=== PATIENT | female | born 1970 | race Hispanic/Latino ===

== ENCOUNTER 2022-10-04 14:24 | Outpatient (CLI) | payer OTHER ==
[2022-10-04 16:39] LABS: Hemoglobin 10.2 g/dL (12.0-15.5); Mean Corpuscular HGB CONC 33.2 g/dL (32.0-36.0); Mean Corpuscular Hemoglobin 28.5 pg (27.0-33.0); Mean Corpuscular Volume 85.8 fl (81.6-98.3); Mean Platelet Volume 10.4 fl (7.4-10.4); Platelet Count 355 10x3/uL (150-450); RBC Distribution Width 15.5 % (11.5-14.5); Red Blood Cell (RBC) Count 3.58 10x6/uL (3.90-5.03); White Blood Cell (WBC) Count 6.4 10x3/uL (3.5-10.5)
[2022-10-04 16:53] LABS: BHCG - Serum Negative (NEGATIVE); Pregs Control Background? CLEAR/WHITE (CLR/WHITE); Pregs Control Bar Appear? YES (CONTROL BAR)
[2022-10-04 16:59] LABS: ALT (SGPT) 113 U/L (8-55); AST (SGOT) 80 U/L (5-34); Albumin 4.4 g/dL (3.5-5.0); Alkaline Phosphatase 90 U/L (40-110); Anion Gap 10 mmol/L (10-20); BUN (Urea Nitrogen) 9 mg/dL (9.8-20.1); Bilirubin, Direct 0.1 mg/dL (0.1-0.3); Bilirubin, Total 0.2 mg/dL (0.2-1.2); Calc. Creatinine Clearance 0 mL/min (70-130); Calcium 8.9 mg/dL (7.8-10.44); Carbon Dioxide 26 mmol/L (22-29); Chloride 106 mmol/L (98-107); Estimated GFR 93; Glucose 143 mg/dL (70-105); Potassium 3.9 mmol/L (3.5-5.1); Protein, Total 7.1 g/dL (6.0-8.3); Sodium 138 mmol/L (136-145)
== END 2022-10-04 14:25 | disposition home or self-care (01) ==
LOC: CSHLAB 14:24
PROVIDERS: ATTEND Student in an Organized Health Care Education/Training Program
DX: Z01.818 Encounter for other preprocedural examination (principal); D25.1 Intramural leiomyoma of uterus
CPT/HCPCS: 80048; 80076; 84703; 85027; 86850; 86900; 86901; 93005; 93010

== ENCOUNTER 2022-10-08 11:02 | Day surgery (SDC) | payer OTHER ==
[2022-10-07 10:02] VITALS: BMI 38.0
[~2022-10-08 11:02] MED LIST: Promethazine HCl 25 MG/ML VIAL ONE
[2022-10-08] MEDS ORDERED: CeleCOXIB 100 MG CAP ONE (11:27)
[2022-10-08] MEDS ORDERED: Famotidine/PF 20 mg/2ml Vial ONE (11:28)
[2022-10-08] MEDS ORDERED: Gabapentin 300 MG CAP ONE (11:28)
[2022-10-08] MEDS ORDERED: PROPOFOL 20 ML ONE (11:57)
[2022-10-08] MEDS ORDERED: Bupivacaine PF 0.5% 30 ML VIAL ONE (12:12)
[2022-10-08] MEDS ORDERED: EPINEPHrine 1 MG/ML AMP ONE (12:12)
[2022-10-08] MEDS ORDERED: Fentanyl 250 MCG/5 ML VIAL ONE (12:16)
[2022-10-08] MEDS ORDERED: Fentanyl 100 MCG/2 ML VIAL ONE (12:16)
[2022-10-08] MEDS ORDERED: CEFAZOLIN 2 GM VIAL ONE (12:27)
[2022-10-08] MEDS ORDERED: Scopolamine 1.5 mg/72 hour Patch ONE (12:27)
[2022-10-08] MEDS ORDERED: Midazolam HCl 2 mg/2 ml Vial ONE (12:33)
[2022-10-08] MEDS ORDERED: PHENYLEPHRINE-NS 100 MCG/ML 10 ML SYRINGE ONE (13:05)
[2022-10-08] MEDS ORDERED: Glycopyrrolate 0.2 MG/ML 5 ML SYRINGE ONE (14:20)
[2022-10-08] MEDS ORDERED: Meperidine HCl/PF 25 MG/ML VIAL ONE (15:24)
[2022-10-08] MEDS ORDERED: Promethazine HCl 25 MG/ML VIAL IM PRN (17:58)
[2022-10-08] MEDS ORDERED: Bisacodyl 10 MG SUPP PR PRN (17:58)
[2022-10-08] MEDS ORDERED: HYDROcodone/Acetaminophen 5/325 mg Tablet PO PRN ×2 (17:58)
[2022-10-08] MEDS ORDERED: Acetaminophen 325 MG TAB PO PRN (17:58)
[2022-10-08] MEDS ORDERED: Fentanyl 100 MCG/2 ML VIAL SLOW IVP PRN (17:58)
[2022-10-08] MEDS ORDERED: diphenhydrAMINE 25 MG CAP PO PRN (17:58)
[2022-10-08] MEDS ORDERED: Zolpidem Tartrate 5 MG TAB PO PRN (17:58)
[2022-10-08] MEDS ORDERED: Ondansetron PF 4 MG/2 ML Vial IVP PRN (17:58)
[2022-10-08] MEDS ORDERED: metFORMIN 500 MG TAB PO SCH (20:00)
[2022-10-08] MEDS: Ketorolac Tromethamine 30 MG/ML VIAL IVP SCH (20:19)
[2022-10-08] MEDS: Lactated Ringer's 1,000 ML IV SCH (20:21)
[2022-10-08] MEDS: Simethicone Chewable 80 MG TAB PO PRN (20:29)
[2022-10-09] MEDS: Ketorolac Tromethamine 30 MG/ML VIAL IVP SCH (04:00)
[2022-10-09 04:46] LABS: Hemoglobin 10.7 g/dL (12.0-15.5); Mean Corpuscular HGB CONC 33.2 g/dL (32.0-36.0); Mean Corpuscular Hemoglobin 28.1 pg (27.0-33.0); Mean Corpuscular Volume 84.5 fl (81.6-98.3); Mean Platelet Volume 9.6 fl (7.4-10.4); Platelet Count 455 10x3/uL (150-450); RBC Distribution Width 14.8 % (11.5-14.5); Red Blood Cell (RBC) Count 3.81 10x6/uL (3.90-5.03); White Blood Cell (WBC) Count 12.9 10x3/uL (3.5-10.5)
[2022-10-09 07:45] VITALS: BP 141/65; TEMP 99.7
[2022-10-09] MEDS ORDERED: metFORMIN 500 MG TAB PO SCH (08:00)
[2022-10-09] MEDS: Simethicone Chewable 80 MG TAB PO PRN (08:20)
[2022-10-09] MEDS ORDERED: Amlodipine 5 MG TAB PO SCH (09:00)
[2022-10-09] MEDS: Lactated Ringer's 1,000 ML IV SCH (09:40)
[2022-10-14] MEDS ORDERED: Ibuprofen 800 MG TAB PO SCH (06:00)
== END 2022-10-09 11:15 | disposition home or self-care (01) ==
LOC: CSHSDC 11:02 → UNDOADMIN 19:31 → CSHPED 19:31 → UNDODISIN 10-09 11:15 → CSHSDC 10-09 11:15
PROVIDERS: ATTEND Student in an Organized Health Care Education/Training Program
PROC: 0UT74ZZ Resection of Bilateral Fallopian Tubes, Percutaneous Endoscopic Approach (ICD-10-PCS; principal; 2022-10-08)
PROC: 0UT94ZZ Resection of Uterus, Percutaneous Endoscopic Approach (ICD-10-PCS; principal; 2022-10-08)
DX: D25.9 Leiomyoma of uterus, unspecified (principal); N92.0 Excessive and frequent menstruation with regular cycle; N72 Inflammatory disease of cervix uteri; N80.03 Adenomyosis of the uterus; N83.8 Other noninflammatory disorders of ovary, fallopian tube and broad ligament; K66.0 Peritoneal adhesions (postprocedural) (postinfection); I10 Essential (primary) hypertension; E11.9 Type 2 diabetes mellitus without complications; Z79.899 Other long term (current) drug therapy; Z88.5 Allergy status to narcotic agent; Z79.84 Long term (current) use of oral hypoglycemic drugs
CPT/HCPCS: 85027; 88307; C1889; J0171; J1885; J2175; J2250; J2550; J2704; J3010; J7120; S0020; S0028